=== PATIENT | male | born 1955 ===

== ENCOUNTER 2022-05-04 08:15 | Outpatient (CLI) | payer MEDICARE, OTHER ==
[2022-05-04] MEDS ORDERED: Iopamidol 300 61% 100 ML VIAL FS ONE (12:45)
== END 2022-05-04 08:16 | disposition home or self-care (01) ==
LOC: CSHCT 08:15
PROVIDERS: ATTEND Family Medicine
DX: N20.0 Calculus of kidney (principal); K74.60 Unspecified cirrhosis of liver; K76.6 Portal hypertension; R16.1 Splenomegaly, not elsewhere classified; R18.8 Other ascites; K80.20 Calculus of gallbladder without cholecystitis without obstruction; N32.9 Bladder disorder, unspecified; K42.9 Umbilical hernia without obstruction or gangrene; N40.0 Benign prostatic hyperplasia without lower urinary tract symptoms
CPT/HCPCS: 74178; Q9967